=== PATIENT | female | born 1985 | race Caucasian/White ===

== ENCOUNTER 2021-08-13 11:14 | Emergency (ER) | payer OTHER ==
[~2021-08-13] VITALS: Ht 154.9 cm; Wt 81.6 kg
[2021-08-13] MEDS ORDERED: MEDROLPACK PO (13:40)
[2021-08-13] MEDS ORDERED: CAPSAICIN60 GM TOP (13:40)
== END 2021-08-13 14:15 | disposition home or self-care (01) ==
LOC: ER 11:14
DX: T78.40XA Allergy, unspecified, initial encounter (principal)

== ENCOUNTER 2022-01-11 17:50 | Emergency (ER) | payer OTHER ==
[~2022-01-11] VITALS: Ht 154.9 cm; Wt 81.6 kg
[~2022-01-11 17:50] MED LIST: CAPSAICIN60 GM TOP; MEDROLPACK PO
[2022-01-11] MEDS ORDERED: MACRODANTIN100 M1 PO (21:54)
== END 2022-01-11 22:24 | disposition home or self-care (01) ==
LOC: ER 17:50
DX: N39.0 Urinary tract infection, site not specified (principal); Z20.822 Contact with and (suspected) exposure to COVID-19; Z88.8 Allergy status to other drugs, medicaments and biological substances; R51.9 Headache, unspecified

== ENCOUNTER 2022-06-06 14:39 | Emergency (ER) | payer OTHER ==
[~2022-06-06] VITALS: Ht 154.9 cm; Wt 81.6 kg
[~2022-06-06 14:39] MED LIST changes: +MACRODANTIN100 M1 PO
== END 2022-06-06 18:17 | disposition home or self-care (01) ==
LOC: ER 14:39
DX: F41.9 Anxiety disorder, unspecified (principal)

== ENCOUNTER 2022-07-13 18:55 | Emergency (ER) | payer OTHER ==
[~2022-07-13] VITALS: Ht 154.9 cm; Wt 81.6 kg
== END 2022-07-13 21:00 | disposition home or self-care (01) ==
LOC: ER 18:55
DX: J06.9 Acute upper respiratory infection, unspecified (principal)

== ENCOUNTER 2023-03-14 13:56 | Emergency (ER) | payer OTHER ==
[~2023-03-14] VITALS: Ht 154.9 cm; Wt 72.6 kg
[2023-03-14] MEDS ORDERED: MONTELUKAST SODI4 M1 (15:00)
[2023-03-14 17:25] LABS: URINE APPEARANCE Clear; URINE BILIRRUBIN Negative (NEGATIVE); URINE BLOOD Negative; URINE COLOR Yellow; URINE GLUCOSE Negative (NEGATIVE); URINE LEUKOCYTE Negative; URINE NITRATE Negative; URINE PROTEIN Negative (NEGATIVE); URINE UROBILINOGEN 0.2 E.U./dl
[2023-03-14 17:28] LABS: URINE BACTERIA 168.7 uL (0.0-1933); URINE EPITHELIAL CELLS 17.4 uL (0.0-38.8); URINE WBC 9.7 uL (0.0-23.2)
[2023-03-14 17:33] LABS: HEMATOCRIT 35.3 % (36.0-45.00); HEMOGLOBIN 11.7 g/dL (12.0-15.00); MEAN CELL VOLUME 87.3 fL (80.00-100.00); MEAN CORPUSCULAR HGB CONC 33.2 g/dl (32.0-36.0); PLATELET COUNT 210 K/uL (150-450); RED BLOOD COUNT 4.04 M/uL (4.00-6.00); RED CELL DISTRIBUTION WIDTH 14.8 % (11.5-14.5)
[2023-03-14 17:50] LABS: CALCIUM 8.3 mg/dL (8.5-10.1); CREATININE SERUM 0.66 mg/dL (0.55-1.02); GFR 101.33; POTASSIUM 3.81 mEq/L (3.5-5.1)
== END 2023-03-15 01:23 | disposition home or self-care (01) ==
LOC: ER 13:56
PROVIDERS: Emergency Medicine
DX: U07.1 COVID-19 (principal)

== ENCOUNTER 2023-11-18 12:48 | Outpatient (CLI) | payer OTHER ==
[~2023-11-18 12:48] MED LIST changes: +MONTELUKAST SODI4 M1
== END 2023-11-18 12:52 | disposition home or self-care (01) ==
LOC: RAD 12:48
PROVIDERS: ATTEND General Practice
DX: S60.052A Contusion of left little finger without damage to nail, initial encounter (principal)

== ENCOUNTER 2024-03-12 14:34 | Emergency (ER) | payer OTHER ==
[~2024-03-12] VITALS: Ht 154.9 cm; Wt 85.7 kg
[2024-03-12] MEDS ORDERED: SUMATRIPTAN SUCCINATE 6 MG/0.5 ML VIAL SUBCUTANEO STA (17:26)
[2024-03-12] MEDS ORDERED: METOCLOPRAMIDE HCL 5 MG/ML VIAL IM STA (17:26)
[2024-03-12] MEDS ORDERED: KETOROLAC TROMETHAMINE 30 MG VIAL IM STA (17:26)
[2024-03-12 18:21] LABS: HEMATOCRIT 38.8 % (36.0-45.00); MEAN CELL VOLUME 85.3 fL (80.00-100.00); MEAN CORPUSCULAR HEMOGLOBIN 28.7 pg (27.00-32.0); MEAN CORPUSCULAR HGB CONC 33.6 g/dl (32.0-36.0); PLATELET COUNT 313 K/uL (150-450); RED BLOOD COUNT 4.55 M/uL (4.00-6.00); RED CELL DISTRIBUTION WIDTH 15.5 % (11.5-14.5)
[2024-03-12] MEDS ORDERED: AZITHROMYCIN250 MG PO (19:53)
== END 2024-03-12 20:00 | disposition home or self-care (01) ==
LOC: ER 14:36
DX: B34.9 Viral infection, unspecified (principal); Z88.8 Allergy status to other drugs, medicaments and biological substances; Z20.822 Contact with and (suspected) exposure to COVID-19

== ENCOUNTER 2024-07-28 14:25 | Emergency (ER) | payer OTHER ==
[~2024-07-28] VITALS: Ht 154.9 cm; Wt 85.3 kg
[~2024-07-28 14:25] MED LIST changes: +AZITHROMYCIN250 MG PO
[2024-07-28] MEDS ORDERED: 0.9 % SODIUM CHLORIDE 1,000 ML IV STA (14:58)
[2024-07-28] MEDS ORDERED: KETOROLAC TROMETHAMINE 30 MG VIAL IV ONE (15:00)
[2024-07-28] MEDS ORDERED: KETOROLAC TROMETHAMINE 30 MG VIAL ONE (15:35)
[2024-07-28 15:56] LABS: HEMATOCRIT 39.1 % (36.0-45.00); HEMOGLOBIN 12.5 g/dL (12.0-15.00); MEAN CELL VOLUME 85.6 fL (80.00-100.00); MEAN CORPUSCULAR HEMOGLOBIN 27.5 pg (27.00-32.0); MEAN CORPUSCULAR HGB CONC 32.1 g/dl (32.0-36.0); PLATELET COUNT 352 K/uL (150-450); RED BLOOD COUNT 4.56 M/uL (4.00-6.00); RED CELL DISTRIBUTION WIDTH 15.2 % (11.5-14.5)
[2024-07-28 16:32] LABS: CALCIUM 9.5 mg/dL (8.5-10.1); CREATININE SERUM 0.78 mg/dL (0.55-1.02); GFR 82.65; POTASSIUM 4.04 mEq/L (3.5-5.1)
[2024-07-28] MEDS ORDERED: FAMOTIDINE/PF 20 MG/2 ML VIAL IV ONE (19:45)
[2024-07-28] MEDS ORDERED: MEPERIDINE HCL/PF 50 MG/ML VIAL IV ONE (19:45)
[2024-07-28] MEDS ORDERED: PROMETHAZINE HCL 25 MG/ML AMPUL IM ONE (19:45)
[2024-07-28] MEDS ORDERED: PROMETHAZINE HCL 25 MG/ML AMPUL ONE (20:16)
[2024-07-28] MEDS ORDERED: FAMOTIDINE/PF 20 MG/2 ML VIAL ONE (20:16)
[2024-07-28] MEDS ORDERED: TRAMADOL HCL 50 MG TABLET PO SCH (20:30)
== END 2024-07-28 22:27 | disposition home or self-care (01) ==
LOC: ER 14:28
PROVIDERS: Emergency Medicine
DX: R10.9 Unspecified abdominal pain (principal); Z88.8 Allergy status to other drugs, medicaments and biological substances